=== PATIENT | male | born 1955 | race Caucasian/White ===

== ENCOUNTER 2018-09-21 14:40 | Outpatient (CLI) | payer OTHER ==
--- NOTE | 2018-09-21 16:07 | CT ---
CT OF THE THORACIC SPINE WITHOUT CONTRAST: 09/21/18 HISTORY: Fall with back pain, predominantly on the right side. COMPARISON: None. FINDINGS: There is moderate multilevel disc degenerative disease. There is a 1.3 cm well circumscribed mixed s clerotic and lucent lesion seen within the posterior and superior aspect of the T7 vertebral body but demonstrates some vertically oriented trabeculation consistent with changes of a small bony hemangio ma. There is diffuse osteopenia. No appreciable osseous central canal or neural foraminal narrowing i s evident. No acute fracture or subluxation is demonstrated. There is scattered emphysema in the visu alized lungs. There is scattered vascular calcifications seen involving the aorta. IMPRESSION: 1. No acute fracture or subluxation demonstrated. 2. Diffuse osteopenia. 3. Moderate multilevel spondylosis of the thoracic spine. 4. Well circumscribed sclerotic lesion at T7 with accentuated vertically oriented trabeculation most suspicious for a bony hemangioma. 5. Scattered centrilobular emphysema. POS: [facility]
--- NOTE | 2018-09-21 16:15 | CT ---
CT OF THE LUMBAR SPINE 09/21/18 COMPARISON: 08/04/16 HISTORY: Fall, trauma, pain on the right. TECHNIQUE: Serial axial CT imaging at 3 mm intervals through the lumbar spine without contrast. Coronal and sagi ttal reformatted imaging obtained. FINDINGS: Evaluation for central canal and/or neural foraminal stenosis is limited on routine CT. Posterior ped icle screws are present bilaterally at L4, L5, L6 and S1 as there are six lumbar type vertebral chery s present. Mild superior end plate irregularity and anterior wedging noted at the L4 vertebral body, unchanged when compared to the prior exam. There is no anterolisthesis or retrolisthesis noted. There is a scoliotic curvature of the lumbar spine with AP to the right centered at the L2-3 level. T12-L1: No osseous cause of significant central canal and neural foraminal stenosis. L1-2: Bilateral facet hypertrophy, left greater than right. No osseous cause of significant central c anal and neural foraminal stenosis. L2-3: Prominent disc space narrowing and degenerative end plate change, especially laterally on the l eft with lateral osteophyte formation. There is osteophyte extension into the left neural foramen as well. L3-4: Disc space narrowing and mild disc bulge. Bilateral facet hypertrophy. Mild central canal steno sis on the left and moderate neural foraminal stenosis on the right. L4-5: There is prominent facet hypertrophy on the right with osteophyte encroachment on the right graciela ral foramen. No osseous cause of significant central canal or left neural foraminal stenosis. L5-6: Bilateral facet hypertrophy. Probable mild right neural foraminal stenosis. No osseous cause of significant central canal or left neural foraminal stenosis. L6-S1: Bilateral facet hypertrophy. No osseous cause of significant central canal and neural foramina l stenosis. No acute fracture or dislocation. No worrisome lytic blastic bone lesion. There is multifocal atherosclerotic calcification of the abdominal aorta and its branches. The partia lly visualized stones are seen within the gallbladder lumen. Multiple punctate nonobstructing stones are noted within both kidneys. IMPRESSION: Multilevel postoperative and degenerative change noted within the lumbar spine as detailed above. No displaced fracture noted. Additional incidental findings as detailed above. POS: OFF
== END 2018-09-21 14:41 | disposition home or self-care (01) ==
LOC: TBSIIMAG 14:40
PROVIDERS: ATTEND Neurological Surgery
DX: M54.5 Low back pain (principal); M54.6 Pain in thoracic spine; M47.816 Spondylosis without myelopathy or radiculopathy, lumbar region; M47.814 Spondylosis without myelopathy or radiculopathy, thoracic region; M85.88 Other specified disorders of bone density and structure, other site; J43.2 Centrilobular emphysema; M89.9 Disorder of bone, unspecified; Z98.890 Other specified postprocedural states
CPT/HCPCS: 72128; 72131

== ENCOUNTER 2023-03-11 10:53 | Outpatient (CLI) | payer OTHER ==
[2023-03-11 12:50] LABS: Hemoglobin 13.2 g/dL (13.5-17.5)
[2023-03-11 13:34] LABS: Anion Gap 18 mmol/L (10-20); BUN (Urea Nitrogen) 12 mg/dL (8.4-25.7); Calc. Creatinine Clearance 0 mL/min (70-130); Calcium 9.1 mg/dL (7.8-10.44); Carbon Dioxide 22 mmol/L (23-31); Chloride 105 mmol/L (98-107); Estimated GFR 103; Glucose 84 mg/dL (80-115); Potassium 4.4 mmol/L (3.5-5.1); Sodium 141 mmol/L (136-145)
== END 2023-03-11 10:54 | disposition home or self-care (01) ==
LOC: LABBT 10:53
PROVIDERS: ATTEND Specialist
DX: Z01.818 Encounter for other preprocedural examination (principal); S09.22XA Traumatic rupture of left ear drum, initial encounter
CPT/HCPCS: 80048; 85014; 85018; 93005; 93010

== ENCOUNTER 2023-03-17 11:29 | Day surgery (SDC) | payer OTHER ==
[2023-03-16 10:47] VITALS: BMI 22.4
[2023-03-17] MEDS ORDERED: EPINEPHrine 1 MG/ML AMP ONE (14:19)
[2023-03-17] MEDS ORDERED: Lidocaine 1% (PF) 30 ML VIAL ONE (14:19)
[2023-03-17] MEDS ORDERED: Ciprofloxacin 0.2% Otic (0.25ML CONTAINER) ONE (14:19)
[2023-03-17] MEDS ORDERED: Bacitracin Zinc Ointment 30 gm TUBE ONE (14:19)
[2023-03-17] MEDS ORDERED: fentaNYL PF 100 MCG/2 ML SYRINGE ONE (14:34)
[2023-03-17] MEDS ORDERED: ePHEDrine Sulfate 50 MG/10 ML VIAL ONE (14:56)
[2023-03-17] MEDS ORDERED: Dexamethasone 20 MG/5 ML VIAL ONE (14:56)
[2023-03-17] MEDS ORDERED: Rocuronium Bromide 10 MG/ML (10ML VIAL) ONE (14:56)
[2023-03-17] MEDS ORDERED: PHENYLEPHRINE-NS 100 MCG/ML 10 ML SYRINGE ONE (14:56)
[2023-03-17] MEDS ORDERED: Glycopyrrolate 0.2 MG/ML 5 ML SYRINGE ONE (14:56)
[2023-03-17] MEDS ORDERED: PROPOFOL 200 MG/20 ML VIAL ONE (14:56)
[2023-03-17] MEDS ORDERED: Lidocaine 1% PF 5 ML VIAL ONE (14:56)
[2023-03-17] MEDS ORDERED: Ondansetron PF 4 MG/2 ML Vial ONE (14:56)
[2023-03-17] MEDS ORDERED: NEOSTIGMINE 3 MG/3 ML SYR 3 MG/3 ML SYRINGE ONE (14:56)
== END 2023-03-17 17:30 | disposition home or self-care (01) ==
LOC: SDC 11:29
PROVIDERS: ATTEND Specialist
PROC: 09U707Z Supplement Right Tympanic Membrane with Autologous Tissue Substitute, Open Approach (ICD-10-PCS; principal; 2023-03-17)
DX: S09.21XA Traumatic rupture of right ear drum, initial encounter (principal); I10 Essential (primary) hypertension; F17.210 Nicotine dependence, cigarettes, uncomplicated; Z86.14 Personal history of Methicillin resistant Staphylococcus aureus infection; Z79.899 Other long term (current) drug therapy; X58.XXXA Exposure to other specified factors, initial encounter
CPT/HCPCS: J0171; J1100; J2001; J2405; J2704